=== PATIENT | male | born 2000 | race Caucasian/White ===

== ENCOUNTER 2020-01-06 03:10 | Emergency (ER) | payer OTHER, MEDICAID ==
[~2020-01-06] VITALS: Ht 177.8 cm; Wt 75.0 kg
[2020-01-06] MEDS ORDERED: normal saline 1000ml 1,000 ML IV ONE (03:25)
[2020-01-06 03:47] LABS: ALBUMIN 4.6 G/DL (3.4-5.0); ANION GAP 10 (8-16); BLOOD UREA NITROGEN 8 MG/DL (7-18); BUN/CREATININE RATIO 6.3 (5.4-32.0); CALCIUM 8.2 MG/DL (8.5-10.1); CHLORIDE 109 MMOL/L (99-107); CREATININE 1.26 MG/DL (0.60-1.10); GLUCOSE 106 MG/DL (70-104); POTASSIUM 4.5 MMOL/L (3.5-5.1); SODIUM 144 MMOL/L (135-145); TOTAL CARBON DIOXIDE 25.5 MMOL/L (24-32); eGFR 74 ML/MIN
[2020-01-06 04:02] VITALS: BP 123/77
== END 2020-01-06 04:31 | disposition home or self-care (01) ==
LOC: ER 03:11 → EDBD 03:11 → ER 04:31
DX: F10.129 Alcohol abuse with intoxication, unspecified (principal); R32 Unspecified urinary incontinence; Y90.9 Presence of alcohol in blood, level not specified
CPT/HCPCS: 36415; 80048; 99283; J7030